=== PATIENT | male | born 1940 | race Caucasian/White ===

== ENCOUNTER 2017-03-01 08:21 | Outpatient (CLI) | payer MEDICARE, OTHER ==
[~2017-03-01] VITALS: Ht 177.8 cm; Wt 104.5 kg
--- NOTE | ~2017-03-01 | OP ---
PATIENT NAME: EMILY MCCORMACK MEDICAL RECORD: [id number] :40 LOCATION:D.CAT ADMISSION DATE: SURGEON: FABIOLA MCLEAN MD OPERATION DATE: 03/01/17 PROCEDURES: 1. Percutaneous transluminal coronary angioplasty stent left anterior descending. 2. Left heart catheterization. 3. Selective coronary angiography. 4. Left ventriculogram. INDICATION: 1. Angina. 2. Coronary artery disease. PROCEDURE IN DETAIL: After informed consent was obtained and after detailed explanation of risks, benefits, as well as alternative therapies, the patient elected to proceed with angiogram and angioplasty. The right radial area was prepped and draped in a normal sterile fashion. The right radial artery was cannulated via modified Seldinger technique with placement of 6-Czech sheath. All catheters exchanged through this sheath. FINDINGS: The left ventriculogram was performed in standard 30 degree BORRERO view, reveals good cardiac wall motion throughout all segments. Overall ejection fraction estimated at 60%. SELECTIVE CORONARY ANGIOGRAPHY: 1. Left main was with no significant angiographic disease. 2. Left anterior descending has 85% stenosis in the mid vessel. This is a 2.25 millimeter vessel at that point with a 20 millimeter lesion. AKIRA 3 flow. 3. Left circumflex has mild irregularities but no flow-limiting stenosis. 4. The right coronary artery has mild irregularities but no flow-limiting stenosis. PTCA STENT OF THE LEFT ANTERIOR DESCENDING: The stent used was 2.25 X 24 millimeter BioFreedom stent. The result was 0% residual stenosis. AKIRA 3 flow. OVERALL IMPRESSION: Successful percutaneous transluminal coronary angioplasty stent of the left anterior descending going from 85% initial stenosis to 0% residual stenosis. FABIOLA MCLEAN MD CC: [id number] DICTATION DATE: 03/01/17 1500 [employer]GER EM[employer]OY[employer] RELATIONS: DM 03/02/17 0848 DEP CLI 03/01/17 [facility] [address] [place] [address]
--- NOTE | ~2017-03-01 | HEMODYNAMI ---
PATIENT:EMILY MCCORMACK MEDICAL RECORD: [id number] : 40 LOCATION:[facility] ADMISSION DATE: 03/01/17 Generatedon:03/01/201712:37 Patient name: EMILY MCCORMACK Patient #: [id number] SSN: DO B: 1940 Date of study: 03/01/2017 Page: Of Hemodynamic Procedure Report Patient Data Patient Demographics Procedure consent was obtained First Name: EMILY Gender: Male Last Name: KSENIA : 1940 [facility] Initial: C Age: 76 year(s) Patient #: [id number] Race: Unknown Additional ID: [id number] Contact details [address]: [address] [place] [address] [place] State: [place] City: [place] Zip code: [address] Past Medical History Allergies Allergen Reaction Date Comments Reported Other allergy 03/01/2017 AtShaheen banerjee Admission Admission Data Admission Date: 03/01/2017 Admission Time: 8:21 Admit Source: Other Height (in.): 62 BSA: 2.03 (m2) Height (cm.): 157.48 BMI: 42.25 (kg/m2) Weight (lbs.): 231 Weight (kg.): 104.78 Lab Results Lab Result Date: 03/01/2017 Lab Result Time: 0:00 Biochemistry Name Units Result Min Max BUN mg/dl 18 --(---*)-- 7 18 CK-MB ng/ml 2.3 --(--*-)-- 0 3.6 Creatinine mg/dl 1.1 --(--*-)-- 0.6 1.3 Creatinine l 128 --(--*-)-- 21 215 Kinase Troponin l ng/ml 0.017 --(-*--)-- 0 0.06 CBC Name Units Result Min Max Hemoglobin g/dl 15.5 --(-*--)-- 13.5 17.5 Procedure Procedure Types Cath Procedure Diagnostic Procedure C [facility] w/Coronaries PCI Procedure Coronary Stent Initial Miscellaneous Procedures Moderate Sedation up to 15 minutes Procedure Description Procedure Date Procedure Date: 03/01/2017 Procedure Start Time: 12:24 Procedure End Time: 12:35 Procedure Staff Name Function Ke Dowd MD Performing Physician Reynold Tovar RT Scrub Angélica Mckay RN Nurse Edilia Childress RT Monitor Procedure Data Cath Procedure Fluoroscopy Diagnostic fluoroscopy Total fluoroscopy Time: 3.7 time: 3.7 min min Diagnostic fluoroscopy Total fluoroscopy dose: 749 dose: 749 mGy mGy Contrast Material Contrast Material Type Amount (ml) Isovue 300 115 Entry Location Entry Primary Successful Side Size Upsize Upsize Entry Closure Kelley ccessful Closure Location (Fr) 1 (Fr) 2 (Fr) Remarks Device Remarks Radial Right 6 Fr Mechanical TR band artery Short Compression Estimated blood loss: 10 ml Diagnostic catheters Device Type Used For End Catheter Placement Diagnostic Terumo 5Fr Procedure Marshfield 110cm catheter Procedure Complications No complications Procedure Medications Medication Administration Route Dosage Oxygen NC 2 l/min Heparin Flush Bag added to field 2 bags (1000units/500ml NS) Lidocaine 2% added to field 20 Radial Cocktail added to field 1 syringe (Verapomil 2mg/Nitro 400mcg/Heparin 1500units) Versed I.V. 1 mg Fentanyl I.V. 50 mcg Versed I.V. 1 mg Fentanyl I.V. 50 mcg Radial Cocktail I.A. 1 syringe (Verapomil 2mg/Nitro 400mcg/Heparin 1500units) Versed I.V. 1 mg Fentanyl I.V. 50 mcg Heparin Bolus I.V. 4000 units Fentanyl I.V. 50 mcg Hemodynamics Rest BSA: 2.03 (m2) HGB: 15.5 (g/dl) O2 Consumption: Estimated: 220.22 (ml/min) O2 Co nsumption indexed: Estimated:108.48 (ml/min/m) Heart Rate: 53 (bpm) Snapshots Pre Cath Intra NCS Post Cath Vital Signs Time Heart Resp SPO2 etCO2 JU3zipt NIBP (mmHg) Rhythm Pain Sedation Rate (ipm) (%) (mmHg) (mmHg) Status Level (bpm) 12:05:57 52 16 97 0 0 146/83(128) SB 0 (11) 10(A) , No pain 12:10:19 50 15 97 0 0 138/78(121) SB 0 (11) 10(A) , No pain 12:14:33 51 16 99 0 0 126/73(98) SB 0 (11) 10(A) , No pain 12:18:45 49 16 98 0 0 117/75(94) SB 0 (11) 10(A) , No pain 12:22:53 54 16 95 0 0 91/68(80) SB 0 (11) 10(A) , No pain 12:26:59 58 14 95 0 0 92/61(83) SB 0 (11) 9(A) , No pain 12:31:04 55 16 97 0 0 101/61(83) SB 0 (11) 9(A) , No pain 12:35:00 55 14 96 0 0 96/61(76) SB 0 (11) 9(A) , No pain Medications Time Medication Route Dose Verified Delivered Reason Note s Effectiveness by by 12:04:54 Oxygen NC 2 l/min Ke Angélica Per physician Nile Mckay RN 12:05:06 Heparin Flush added 2 bags Ke Dempsey used for Bag to Nile Dowd MD procedure (1000units/500ml field NS) 12:05:16 Lidocaine 2% added 20ml Ke Ke used for to vial Nile Dowd MD procedure field 12:11:05 Radial Cocktail added 1 Ke Ke used for (Verapomil to syringe Nile Dowd MD procedure 2mg/Nitro field 400mcg/Heparin 1500units) 12:19:18 Versed I.V. 1 mg Ke Angélica for sedation Nile Mckay RN 12:19:24 Fentanyl I.V. 50 mcg Ke Angélica for sedation Nile Mckay RN 12:21:35 Versed I.V. 1 mg Ke Angélica for sedation Nile Mckay RN 12:21:37 Fentanyl I.V. 50 mcg Ke Angélica for sedation Nile Mckay RN 12:23:31 Versed I.V. 1 mg Ke Angélica for sedation Nile Mckay RN 12:23:49 Fentanyl I.V. 50 mcg Ke Angélica for sedation Nile Mckay RN 12:23:54 Radial Cocktail I.A. 1 Kelin Camrey for (Verapomil syringe Nile Dowd MD vasodilation 2mg/Nitro 400mcg/Heparin 1500units) 12:25:11 Fentanyl I.V. 50 mcg Ke Lindsay for sedation Nile Mckay RN 12:27:49 Heparin Bolus I.V. 4000 Ke Restrepoecca for dose units Nile Mckay RN anticoagulation verified [facility] dr dowd Procedure Log Time Note 11:49:08 Patient Height : 62 cm 11:49:19 Patient Weight : 231 kg 11:49:19 Admit Source: Other 11:51:08 Lab Result : CK-MB 2.3 ng/ml 11:51:08 Lab Result : Creatinine 1.1 mg/dl 11:51:08 Lab Result : BUN 18 mg/dl :51:08 Lab Result : Hemoglobin 15.5 g/dl :51:08 Lab Result : Troponin l 0.017 ng/ml 11:51:08 Lab Result : Creatinine Kinase 128 l 11:51:20 Diagnostic Cath Status : Elective 11:52:01 Reynold HARLEY(R) sent for patient. Start room use. 11:52:02 Time tracking: Regular hours 11:52:08 Plan of Care:Hemodynamics will remain stable., Cardiac rhythm will remain stable., Comfort level will be maintained., Respiratory function will remain adequate., Patient/ family verbilizes understanding of procedure., Procedure tolerated without complication., Recovers from procedure without complications.. 12:00:56 Patient received from Pre/Post Procedure Room to CCL 1 Alert and oriented. Tansferred to table in Supine position. 12:00:58 Warm blankets applied, and landry hugger turned on for patient comfort. 12:00:58 Correct patient and procedure confirmed by team. 12:01:00 Signed procedure consent form obtained from patient. 12:01:00 ECG and BP/O2 sat monitors applied to patient. 12:04:43 Vital chart was started 12:04:54 Oxygen 2 l/min NC was administered by Angélica Mckay RN; Per physician; 12:05:06 Heparin Flush Bag (1000units/500ml NS) 2 bags added to field was administered by Ke Dowd MD; used for procedure; 12:05:16 Lidocaine 2% 20ml vial added to field was administered by Ke Dowd MD; used for procedure; 12:11:05 Radial Cocktail (Verapomil 2mg/Nitro 400mcg/Heparin 1500units) 1 syringe added to field was administered by Ke Dowd MD; used for procedure; 12:14:43 Baseline sample Acquired. 12:14:56 Rhythm: sinus rhythm 12:14:58 Full Disclosure recording started 12:15:28 H&P Date Dictated: 02/27/2017 Within 30 days and on chart., H&P Addendum completed by physician on day of procedure. (MUST COMPLETE FOR ALL OUTPATIENTS). 12:15:33 Pre-procedure instructions explained to patient. 12:15:35 Family in waiting room. 12:15:38 Patient NPO since Midnight. 12:16:24 Patient allergic to Other allergyAtivan, Dramamine 12:16:29 Is the patient allergic to Iodine/contrast media? No. 12:16:30 Is patient on blood thinner?Yes 12:16:34 ACC The patient was administered the following blood thiners within the last 24 hours: ACCPlavix 12:16:37 Patient diabetic? No. 12:16:43 Snore? Yes 12:16:45 Sleep apnea? No 12:17:02 IV patent on arrival in left hand with 0.9% NaCl at [facility]. 12:17:10 Lab results completed and on chart. 12:17:14 Right Radial & Right Groin area was prepped with chlora-prep and draped in sterile fashion 12:17:16 Sharps counted by scrub and verified by R.N. 12:17:17 Physician paged 12:19:02 Physician arrived 12:19:02 --------ALL STOP TIME OUT------ 12:19:04 Final Timeout: patient, procedure, and site verified with staff and physician. All members of the team are in agreement. 12:19:06 Right Radial & Right Groin site verified by team. 12:19:11 Physical assessment completed. ASA score P 2 - A patient with mild systemic disease as per Ke Dowd MD. 12:19:16 Sedation plan: IV Moderate Sedation Versed, Fentanyl 12:19:18 Versed 1 mg I.V. was administered by Angélica Mckay RN; for sedation; 12:19:24 Fentanyl 50 mcg I.V. was administered by Angélica Mckay RN; for sedation; 12:21:35 Versed 1 mg I.V. was administered by Angélica Mckay RN; for sedation; 12:21:37 Fentanyl 50 mcg I.V. was administered by Angélica Mckay RN; for sedation; 12::58 Zero performed for pressure channel P1 12:23:03 Procedure started. 12:23:31 Versed 1 mg I.V. was administered by Angélica Mckay RN; for sedation; 12::49 Fentanyl 50 mcg I.V. was administered by Angélica Mckay RN; for sedation; 12::54 Radial Cocktail (Verapomil 2mg/Nitro 400mcg/Heparin 1500units) 1 syringe I.A. was administered by Ke Dowd MD; for vasodilation; 12:24:02 Local anesthetic to right radial artery with Lidocaine 2% by Ke Dowd MD.INITIAL ACCESS ONLY 12:24:14 A 6 Fr Short sheath was inserted into the Right Radial artery 12:24:22 Use device set Radial Dx 12:24:34 Acist Syringe opened to sterile field. 12:24:35 Medline Cath Pack opened to sterile field. 12:24:35 Bag Decanter opened to sterile field. 12:24:36 Terumo 6Fr Slender Glidesheath opened to sterile field. 12:24:36 St Edvin 260cm J .035 wire opened to sterile field. 12:24:36 Acist Hand Control opened to sterile field. 12:24:37 Acist Manifold opened to sterile field. 12:24:37 Tegaderm 4 x 4 opened to sterile field. 12:24:38 MBrace Wrist Support opened to sterile field. 12:24:52 A Diagnostic Terumo 5Fr Marshfield 110cm catheter was advanced over the wire and used for Procedure. 12:25:06 EF : 55 % 12:25:11 Fentanyl 50 mcg I.V. was administered by Angélica Mckay RN; for sedation; 12:25:16 LCA angiography performed. 12:26:36 Mojica Whisper J 300cm 0.014 guide wire opened to sterile field. 12:26:37 RedMart BasixCompak Inflation Kit opened to sterile field. 12:26:45 RCA angiography performed. 12:26:56 Catheter removed. 12::59 Proceeding to intervention. 12::49 Heparin Bolus 4000 units I.V. was administered by Angélica Mckay RN; for anticoagulation; dose verified wtih dr dowd 12:28:40 6 Fr XBLAD 3.5 guide catheter was inserted over the wire 12:28:53 Cordis 6FR XBLAD 3.5 guide catheter opened to sterile field. 12:29:01 Whisper wire advanced. 12:29:10 Wire advanced across lesion. 12:31:26 Inflation Number: 1 A Biofreedom 2.25 x 28 stent (No Cost Implant) was prepped and advanced across the Mid LAD. The stent was deployed at 13 TERRANCE for 0:10 (min:sec). 12:31:57 Inflation number: 2 The stent balloon was then re-inflated across the Mid LAD to 17 TERRANCE for 0:18 (min:sec). 12:32:15 Balloon re-inserted over wire. 12:32:27 Wire removed. 12:32:29 Guide catheter removed. 12:32:51 Terumo TR Band Standard opened to sterile field. 12:33:12 Sheath removed intact; hemostasis achieved with Mechanical Compression to the Right Radial artery. 12:33:15 Procedure ended.(Physican Out) 12:33:45 Fluoroscopy time 03.70 minutes. 12:33:51 Fluoroscopy dose: 749 mGy 12:33:51 Flurop Dose total: 749 12:33:58 Contrast amount:Isovue 300 115ml. 12:34:00 Sharps counted by scrub and verified by R.N. 12:34:10 TR band inflated with 10cc of air. 12:34:15 Post Procedure Pulses reassessed and unchanged 12:34:20 Post-procedure physical assessment completed. ASA score P 2 - A patient with mild systemic disease as per Ke Dowd MD. 12:34:27 Post procedure rhythm: unchanged. 12:34:30 Estimated blood loss: 10 ml 12:34:32 Post procedure instruction explained to patient.Patient verbalizes understanding. 12:34:42 Procedure type changed to Cath procedure, Diagnostic procedure, LHC, LHC w/Coronaries, PCI procedure, Coronary Stent Initial, Miscellaneous Procedures, Moderate Sedation up to 15 minutes 12:34:43 Procedure and supply charges have been captured, reviewed, submitted and are correct. 12:35:13 Procedure Complication : No complications 12:35:17 Vital chart was stopped 12:35:18 See physician's report for complete and final results. 12:35:20 Report given to Pre/Post Procedure Room. 12:35:26 Patient transfered to Pre/Post Procedure Room with Stretcher. 12:35:32 Procedure ended. 12:35:32 Full Disclosure recording stopped 12:35:38 ACC-PCI Only Patient was given prescriptions, or instructed by Ke Dowd MD to start/continue the following medications upon discharge: Plavix 12:35:39 End room use (Document Last) Intervention Summary Intervention Notes Time ActionType Lesion and Equipment Action# Pressure Duration Attributes Used 12::26 Place stent Mid LAD Biofreedom 1 13 00:10 2.25 x 28 stent (No Cost Implant) 12:31:57 Reinflate Mid LAD Biofreedom 2 17 00:18 stent 2.25 x 28 balloon stent (No Cost Implant) Device Usage Item Name Manufacture Quantity Catalog Hospital Part Current Minimal Lot# / Number Charge Number Stock Stock Serial# Code Acist Acist 1 59227 758774 618476 078589 20 Syringe Medical Systems Inc Medline Cardinal 1 [id number] 544204 59469 154990 5 Cath Pack Health Bag Microtek 1 2002S 912123 77617 711674 5 [employer] Terumo 6Fr Terumo 1 [id number] 921605 031500 612847 [address] St Edvin 1 295156 985658 782209 750602 30 260cm J .035 wire Acist Hand Acist 1 98325 680109 829616 748993 5 Control Medical Systems Inc Acist Acist 1 34968 468586 883921 747798 5 Manifold Medical Systems Inc Tegaderm 4 3M 1 1626W 665317 907309 382569 5 x 4 MBrace Advanced 1 140-0250-00 841310 61346 498382 5 Wrist Vascular Support Dynamics Diagnostic Terumo 1 47-6319 658680 478231 408007 5 Terumo 5Fr Marshfield 110cm catheter Mojica Mojica 1 [id number] 575021 842614 900759 5 Whisper J Vascular 300cm 0.014 guide wire Merit Merit 1 IS9527 173563 173694 566875 15 Solasta Medical Inflation Kit Cordis 6FR Cardinal 1 [id number] 845242 408989 459494 10 XBLAD 3.5 Health guide catheter Biofreedom Biosensors 1 [facility]2-8249 028244 313125 5 [id number] 2.25 x 28 [place] SA stent (No Cost Implant) Terumo TR Terumo 1 [id number] 291629 435732 844926 40 Band Standard Signature Audit [place] Stage Time Signature Unsigned Intra-Procedure 03/01/2017 Edilia Childress 12:37:06 PM RT(R) Signatures Monitor : Edilia Childress Signature : RT Date : Time : [facility] [address] [place] [address]
[2017-03-01] MEDS ORDERED: BAYER CHEWABLE81 MG PO (08:36)
[2017-03-01] MEDS ORDERED: COZAAR100 MG PO (08:37)
[2017-03-01] MEDS ORDERED: PLAVIX75 MG PO (08:37)
[2017-03-01] MEDS ORDERED: KERATIN PO (08:38)
[2017-03-01] MEDS ORDERED: BIOTIN PO (08:38)
[2017-03-01] MEDS ORDERED: OMEGA 3 FISH OI1 CAP PO (08:39)
[2017-03-01] MEDS ORDERED: PRESERVISION AR1 CAP PO (08:39)
[2017-03-01 08:54] VITALS: BP 161/92; Ht 177.8 cm; Wt 104.5 kg
[2017-03-01 09:06] LABS: BASOPHILS 0.4 % (0-2); EOSINOPHILS 1.6 % (0-7); HEMATOCRIT 45.4 % (42.0-54.0); HEMOGLOBIN 15.5 g/dL (13.5-17.5); MCH 31.9 pg (26.0-34.0); MCHC 34.1 g/dL (31.0-37.0); MCV 93.4 fL (80.0-100.0); MEAN PLATELET VOLUME 9.8 fL (7.4-10.4); MONOCYTES 8.3 % (2-11); NEUTROPHILS 63.7 % (40-80); PLATELET COUNT 154 10x3/uL (130-400); RBC 4.86 10x6/uL (4.20-6.10); RDW 13.3 % (11.5-14.5)
[2017-03-01 09:44] LABS: CALC OSMOLALITY 283 mosm/kg (275-300); CALCIUM 8.5 mg/dL (8.5-10.1); CARBON DIOXIDE 24.8 mmol/L (21.0-32.0); CHLORIDE - SERUM 106 mmol/L (98-107); CKMB 2.3 U/L (0.0-3.6); CREATINE KINASE 128 UL (21-232); CREATININE - SERUM 1.1 mg/dL (0.6-1.3); GLUCOSE 108 mg/dL (74-106); POTASSIUM - SERUM 4.3 mmol/L (3.5-5.1); SODIUM 141 mmol/L (136-145); UREA NITROGEN 18 mg/dL (7-18); eGFR NON AFRICAN AMERICAN 69 mL/min (90-120)
[2017-03-01 10:00] LABS: TROPONIN-I < 0.017 ng/mL (0.000-0.060)
--- NOTE | 2017-03-01 13:15 | NUR ---
TR BAND TO RIGHT WRIST- CDI, EATING SANDWICH AT THIS TIME, DENIES PAIN OR NEEDS, AT SIDE
--- NOTE | 2017-03-01 13:45 | NUR ---
TR BAND CDI- NO BLEEDING, NO CHANGES, AT SIDE
--- NOTE | 2017-03-01 16:25 | NUR ---
IV D'C WITH CATH TIP INTACT, WRITTEN AND VERBAL INSTRUCTIONS GIVEN TO PT AND - UNDERSTOOD, RX CALLED INTO [facility], DENIES CHEST PAIN. D'C HOME WITH . LAB AND EKG DONE
== END 2017-03-01 16:40 | disposition home or self-care (01) ==
LOC: D.CATH 08:21
PROVIDERS: Internal Medicine Interventional Cardiology
DX: I25.119 Atherosclerotic heart disease of native coronary artery with unspecified angina pectoris (principal); Z00.6 Encounter for examination for normal comparison and control in clinical research program; Z01.812 Encounter for preprocedural laboratory examination
CPT/HCPCS: 93458; C9600